=== PATIENT | female | born 1985 | race Caucasian/White ===

== ENCOUNTER 2020-04-30 10:39 | Day surgery (SDC) | payer OTHER ==
[2020-04-28 13:48] LABS: BASOPHILS # (AUTO) 0.04 x10^3/uL (0-0.1); BASOPHILS % (AUTO) 0 % (0-1); EOSINOPHILS # (AUTO) 0.25 x10^3/uL (0-0.4); EOSINOPHILS % (AUTO) 3 % (1-7); LYMPHOCYTES # (AUTO) 3.17 x10^3/uL (1-3.4); LYMPHOCYTES % (AUTO) 33 % (22-44); MD NO; MEAN CORPUSCULAR HEMOGLOBIN 32.5 pg (27.0-34.8); MEAN CORPUSCULAR HGB CONC 32.6 g/dL (32.4-35.8); MEAN CORPUSCULAR VOLUME 99.7 fL (80-100); MEAN PLATELET VOLUME 9.5 fL (7.4-10.4); MONOCYTES # (AUTO) 0.51 x10^3/uL (0.2-0.8); MONOCYTES % (AUTO) 5 % (2-9); NEUTROPHILS # (AUTO) 5.64 x10^3/uL (1.8-6.8); NEUTROPHILS % (AUTO) 59 % (42-75); PLATELET COUNT 219 x10^3/uL (130-400); RED CELL DISTRIBUTION WIDTH 13.2 % (9.6-15.2)
[2020-04-28 14:24] LABS: HCG UR SG 1.009 (1.003-1.030); MICROSCOPIC NOT IND
[~2020-04-30] VITALS: Ht 154.9 cm; Wt 58.0 kg
[2020-04-30 11:15] VITALS: BP 114/75
[2020-04-30] MEDS ORDERED: CHLORHEXIDINE 15 ML UDC MM STA (11:18)
[2020-04-30] MEDS ORDERED: LACTATED RINGERS 1,000 ML IV ONE (11:18)
[2020-04-30] MEDS ORDERED: ACETAMINOPHEN 500 MG TABLET PO STA (11:19)
[2020-04-30 11:35] LABS: HCG UR SG 1.018 (1.003-1.030)
[2020-04-30] MEDS ORDERED: PROPOFOL 50 ML ONE (12:05)
[2020-04-30] MEDS ORDERED: MIDAZOLAM 1 MG/ML, 2ML ONE (12:07)
[2020-04-30] MEDS ORDERED: FENTANYL PF 100 MCG/2ML ONE ×2 (12:07→12:36)
[2020-04-30] MEDS ORDERED: BUPIVACAINE/EPI 0.5% 1:200K ONE (12:11)
[2020-04-30] MEDS ORDERED: SILVER NITRATE STICK TP ONE (12:12)
[2020-04-30] MEDS ORDERED: DEXAMETHASONE 4 MG/ML, 1ML ONE (12:17)
[2020-04-30] MEDS ORDERED: ONDANSETRON 2MG/ML, 2ML ONE (12:17)
[2020-04-30] MEDS ORDERED: MEPERIDINE/PF 25MG/0.5ML IVPush PRN (12:30)
[2020-04-30] MEDS ORDERED: DIAZEPAM 5 MG/ML, 2ML IVPush PRN (12:30)
[2020-04-30] MEDS ORDERED: HYDROmorphone 1 MG/ML, 1ML INJ IVPush PRN (12:30)
[2020-04-30] MEDS ORDERED: HALOPERIDOL 5 MG/ML IV PRN (12:30)
[2020-04-30] MEDS ORDERED: OXYcodone 5 MG/5 ML ORAL.SOL UDC PO PRN (12:30)
[2020-04-30] MEDS ORDERED: FENTANYL PF 100 MCG/2ML IV PRN (12:30)
[2020-04-30] MEDS ORDERED: ONDANSETRON 2MG/ML, 2ML IVPush PRN (12:30)
[2020-04-30] MEDS ORDERED: DIPHENHYDRAMINE 50 MG/ML, 1ML IVPush PRN (12:30)
[2020-04-30] MEDS ORDERED: PROMETHAZINE 25 MG/ML, 1ML IVPush PRN (12:30)
== END 2020-04-30 14:50 | disposition home or self-care (01) ==
LOC: OUT 10:39
PROVIDERS: ATTEND Obstetrics & Gynecology
DX: T83.89XA Other specified complication of genitourinary prosthetic devices, implants and grafts, initial encounter (principal); Z11.59 Encounter for screening for other viral diseases; Y83.8 Other surgical procedures as the cause of abnormal reaction of the patient, or of later complication, without mention of misadventure at the time of the procedure; Z98.890 Other specified postprocedural states; Z72.89 Other problems related to lifestyle; Z82.49 Family history of ischemic heart disease and other diseases of the circulatory system
CPT/HCPCS: 36415; 58562; 81003; 81025; 85025; 87635; J1100; J2250; J2405; J2704; J3010; J7120